=== PATIENT | female | born 1975 | race African-American/Black ===

== ENCOUNTER 2021-12-02 11:08 | Emergency (ER) | payer OTHER ==
[2021-12-02 11:47] VITALS: RESP 20; BMI 44.6
[2021-12-02] MEDS ORDERED: MECLIZINE HCL 25 MG TABLET (FP) PO ONE (12:10)
[2021-12-02] MEDS ORDERED: LACTATED RINGERS SOLUTION 1000 ML INFUS.BAG IV ONE (12:11)
[2021-12-02 12:40] LABS: BASO % 0.9 % (0-2.0); EOS % 2.5 % (0-4.5); HEMATOCRIT 41.1 % (32.4-45.2); HEMOGLOBIN 13.7 GM/dL (10.7-15.3); LYMPH % 25.1 % (8-40); MCH 28.9 pg (25.7-33.7); MCHC 33.2 g/dl (32.0-36.0); MEAN PLT VOLUME 7.7 fl (7.5-11.1); MONO % 8.3 % (3.8-10.2); NEUT % 63.2 % (42.8-82.8); PLATELET COUNT 339 10^3/uL (134-434); RBC 4.73 M/mm3 (3.60-5.2); RDW 13.9 % (11.6-15.6); WHITE BLOOD COUNT 7.3 K/mm3 (4.0-10.0)
[2021-12-02 13:06] LABS: ALBUMIN 3.8 g/dl (3.4-5.0); BLOOD UREA NITROGEN 10.3 mg/dL (7-18); CALCIUM 9.2 mg/dL (8.5-10.1)
[2021-12-02 13:10] LABS: BILIRUBIN,TOTAL 0.6 mg/dL (0.2-1); CREATININE 0.8 mg/dL (0.55-1.3); TOT PROT 7.5 g/dl (6.4-8.2)
[2021-12-02 13:14] LABS: EPI CELLS 22 /uL (0-25.1); HYALINE CASTS 1 /uL (0-3.1); PH,URINE 7.5 (5.0-8.0); URINE APPEARANCE CLOUDY; URINE BACTERIA 141 /uL (0-1359); URINE BILIRUBIN NEGATIVE (NEGATIVE); URINE COLOR YELLOW; URINE GLUCOSE (UA) NEGATIVE (NEGATIVE); URINE KETONE NEGATIVE (NEGATIVE); URINE LEUK ESTERASE 2+ (NEGATIVE); URINE NITRITE NEGATIVE (NEGATIVE); URINE PROTEIN NEGATIVE (NEGATIVE); URINE RBC 9 /uL (0-23.9); URINE UROBILINOGEN 0.2 mg/dL (0.2-1.0); URINE WBC 71 /uL (0-25.8)
[2021-12-02 13:52] VITALS: BP 116/67; PULSE 72
== END 2021-12-02 16:14 | disposition home or self-care (01) ==
LOC: JER 11:08
DX: R42 Dizziness and giddiness (principal)
CPT/HCPCS: 36415; 80053; 81003; 84484; 85025; 87086; 93005; 93010; 99284-25

== ENCOUNTER 2022-03-02 12:28 | Emergency (ER) | payer OTHER ==
[2022-03-02 12:49] VITALS: RESP 18; TEMP 99.5; BMI 40.3
[2022-03-02 14:46] LABS: HEMATOCRIT 40.8 % (32.4-45.2); HEMOGLOBIN 13.5 GM/dL (10.7-15.3); MCH 29.5 pg (25.7-33.7); MCHC 33.1 g/dl (32.0-36.0); PLATELET COUNT 333 10^3/uL (134-434); RBC 4.58 M/mm3 (3.60-5.2); RDW 14.4 % (11.6-15.6); WHITE BLOOD COUNT 7.9 K/mm3 (4.0-10.0)
[2022-03-02 14:55] LABS: INR 1.33 (0.83-1.09); PROTHROMBIN TIME (PATIENT) 15.3 SEC (9.7-13.0)
[2022-03-02 15:03] LABS: CHLORIDE 102 mmol/L (98-107); SODIUM 140 mmol/L (136-145)
[2022-03-02 15:05] LABS: ALBUMIN 3.9 g/dl (3.4-5.0); ANION GAP 5 MMOL/L (8-16); BLOOD UREA NITROGEN 9.2 mg/dL (7-18); CALCIUM 9.4 mg/dL (8.5-10.1); CO2 32 mmol/L (21-32); GLUCOSE,RANDOM 96 mg/dL (74-106)
[2022-03-02 15:08] LABS: CREATININE 0.8 mg/dL (0.55-1.3); SGOT/AST 25 U/L (15-37); SGPT/ALT 31 U/L (13-61)
[2022-03-02 15:10] LABS: BILIRUBIN,TOTAL 0.6 mg/dL (0.2-1); TOT PROT 7.6 g/dl (6.4-8.2)
[2022-03-02 15:11] LABS: ALK PHOS 74 U/L (45-117)
[2022-03-02 15:13] LABS: N-TERMINAL BNP < 5.0 pg/ml (5-125)
[2022-03-02] MEDS ORDERED: POTASSIUM CHLORIDE ORAL LIQUID 20 MEQ/15 ML PO ONE (17:35)
[2022-03-02] MEDS ORDERED: POTASSIUM CHLORIDE ORAL LIQUID 20 MEQ/15 ML ONE (17:55)
[2022-03-02 18:43] LABS: BLOOD UREA NITROGEN 8.5 mg/dL (7-18)
[2022-03-02 18:46] LABS: CREATININE 0.8 mg/dL (0.55-1.3)
[2022-03-02 18:57] VITALS: BP 133/83; PULSE 80
[2022-03-02] MEDS ORDERED: POTASSIUM CHLORIDE TABS 20 MEQ TABLET.ER (FP) PO ONE ×2 (19:40→19:46)
== END 2022-03-02 20:13 | disposition home or self-care (01) ==
LOC: JER 12:28
DX: R05.1 Acute cough (principal); R07.81 Pleurodynia; R06.02 Shortness of breath
CPT/HCPCS: 0241U-QW; 36415; 71046-TC-FY; 71275-TC; 80048; 80053; 83880; 84484; 84702; 85027; 85610; 87040; 93005; 93010; 93970-TC; 99285-25; Q9967

== ENCOUNTER 2022-07-02 08:12 | Emergency (ER) | payer OTHER ==
[2022-07-02 08:21] VITALS: RESP 18; BMI 48.8
[2022-07-02] MEDS ORDERED: MAG HYDROX/AL HYDROX/SIMETH 30 ML UNIT-DOSE CUP PO ONE (08:57)
[2022-07-02] MEDS ORDERED: FAMOTIDINE 20 MG/50 ML IVPB 20 MG/50 ML MG IVPB ONE ×2 (08:57→09:04)
[2022-07-02] MEDS ORDERED: MAG HYDROX/AL HYDROX/SIMETH 30 ML UNIT-DOSE CUP ONE (09:04)
[2022-07-02 09:35] LABS: BASO % 0.5 % (0-2.0); EOS % 2.2 % (0-4.5); HEMATOCRIT 38.9 % (32.4-45.2); HEMOGLOBIN 13.3 GM/dL (10.7-15.3); MCH 29.8 pg (25.7-33.7); MCHC 34.1 g/dl (32.0-36.0); MEAN CELL VOLUME 87.5 fl (80-96); MEAN PLT VOLUME 7.3 fl (7.5-11.1); MONO % 9.4 % (3.8-10.2); NEUT % 57.9 % (42.8-82.8); PLATELET COUNT 290 10^3/uL (134-434); RBC 4.45 M/mm3 (3.60-5.2); RDW 13.9 % (11.6-15.6); WHITE BLOOD COUNT 7.3 K/mm3 (4.0-10.0)
[2022-07-02 09:38] LABS: EPI CELLS 2 /uL (0-25.1); HYALINE CASTS 0 /uL (0-3.1); URINE APPEARANCE CLEAR; URINE BACTERIA 16 /uL (0-1359); URINE BILIRUBIN NEGATIVE (NEGATIVE); URINE COLOR YELLOW; URINE GLUCOSE (UA) NEGATIVE (NEGATIVE); URINE KETONE NEGATIVE (NEGATIVE); URINE LEUK ESTERASE TRACE (NEGATIVE); URINE NITRITE NEGATIVE (NEGATIVE); URINE PROTEIN NEGATIVE (NEGATIVE); URINE RBC 10 /uL (0-23.9); URINE UROBILINOGEN 0.2 mg/dL (0.2-1.0); URINE WBC 4 /uL (0-25.8)
[2022-07-02 10:44] LABS: POTASSIUM 3.7 mmol/L (3.5-5.1)
[2022-07-02 10:46] LABS: CALCIUM 9.4 mg/dL (8.5-10.1)
[2022-07-02 10:47] LABS: ALBUMIN 3.9 g/dl (3.4-5.0); BLOOD UREA NITROGEN 10.4 mg/dL (7-18)
[2022-07-02 10:50] LABS: CREATININE 0.8 mg/dL (0.55-1.3)
[2022-07-02 10:52] LABS: BILIRUBIN,TOTAL 0.5 mg/dL (0.2-1); TOT PROT 7.6 g/dl (6.4-8.2)
[2022-07-02 12:00] VITALS: BP 146/76; PULSE 72; TEMP 99.2
== END 2022-07-02 12:00 | disposition home or self-care (01) ==
LOC: JER 08:12
PROC: 3E033GC Introduction of Other Therapeutic Substance into Peripheral Vein, Percutaneous Approach (ICD-10-PCS; principal; 2022-07-02)
DX: R10.31 Right lower quadrant pain (principal); R53.1 Weakness; R35.0 Frequency of micturition
CPT/HCPCS: 36415; 74177-TC; 80053; 81003; 83690; 84703; 85025; 87086; 87186; 96365; 99285-25; Q9967